=== PATIENT | female | born 1985 | race African-American/Black ===

== ENCOUNTER 2018-02-11 05:57 | Emergency (ER) | payer OTHER ==
[~2018-02-11] VITALS: Ht 177.8 cm; Wt 79.4 kg
[~2018-02-11 05:57] MED LIST: ACYCLOVIR800 MG PO; ADDERALL15 MG PO; ADDERALL5 MG PO; ATIVAN0.5 MG PO; ATROVENT NASAL15 ML NAS; AZITHROMYCIN500 MG PO; CATAFLAM50 MG PO; CIPROFLOXACIN500 MG PO; CLARITIN10 MG PO; CLEOCIN HCL150 MG PO; CLINDAMYCIN HC300 MG PO; CORDROL20 MG PO; DOXYCYCLINE MO100 MG PO; HYCODAN 1.5 MG480 ML PO; HYDROCODONE BIT1 T11 PO; LIDEX 0.05% CRE15 GM T; MACROBID100 M1 PO; MACRODANTIN100 MG PO; MEDROL DOSEPAK4 MG PO; MIDRIN (DURADR1 CAP PO; MOTRIN800 MG PO; NAPROSYN250 MG PO; NO DAILY MEDS; PHENERGAN W/ DE30 ML PO; PREDNICOT20 MG PO; PRENATAL 1 MG +1 TAB PO; PRENATAL1 TA3 PO; PRENATAL1 TA4 PO; PRENATAL1 TA7 PO; PYRIDIUM200 MG PO; ROBAXIN750 MG PO; SEPTRA DS 800 M1 TAB PO; SUDAFED60 M1 PO; TRAMADOL HCL50 MG PO; VIBRAMYCIN100 MG PO; VICO10300 PO; VICODIN 5/500 505 MG PO; VOLTAREN50 M1 PO; XANAX0.25 MG PO; ZANTAC 150150 MG PO; ZITHROMAX Z PA250 MG PO; ZITHROMAX Z-PA250 MG PO; ZOFRAN ODT4 MG SL; ZOVIRAX200 MG PO
== END 2018-02-11 06:46 | disposition home or self-care (01) ==
LOC: ED 05:57
DX: M79.672 Pain in left foot (principal); Z88.0 Allergy status to penicillin; Z91.018 Allergy to other foods; Z79.899 Other long term (current) drug therapy

== ENCOUNTER 2018-08-20 05:07 | Emergency (ER) | payer OTHER ==
[~2018-08-20] VITALS: Ht 177.8 cm; Wt 78.0 kg
[2018-08-20] MEDS ORDERED: TESSALON PERLE100 MG PO (05:37)
[2018-08-20] MEDS ORDERED: ROBITUSSIN5 ML PO (05:55)
[2018-08-20] MEDS ORDERED: BROMPHENIR-PSE118 ML PO (06:57)
[2018-09-29] MEDS ORDERED: LEVOFLOXACIN500 MG PO (11:12)
[2018-09-29] MEDS ORDERED: DIFLUCAN150 MG PO (11:12)
[2018-09-29] MEDS ORDERED: SELENIUM SULFI180 M2 T (12:00)
== END 2018-08-20 05:50 | disposition home or self-care (01) ==
LOC: ED 05:07
DX: R05 Cough (principal); R45.1 Restlessness and agitation; Z88.0 Allergy status to penicillin; Z91.018 Allergy to other foods; Z91.048 Other nonmedicinal substance allergy status; Z79.899 Other long term (current) drug therapy